=== PATIENT | male | born 1995 | race Caucasian/White ===

== ENCOUNTER → 2019-06-18 16:30 | Outpatient (BNVA) | payer OTHER, SELFPAY | PROVIDERS: Family Provider Family Medicine; Visit Provider Nurse Practitioner | DX: B34.9 Viral infection, unspecified (principal); Z20.828 Contact with and (suspected) exposure to other viral communicable diseases | CPT/HCPCS: 87635 ==

== ENCOUNTER → 2021-02-01 11:14 | Outpatient (BNVA) | payer OTHER, SELFPAY | PROVIDERS: Family Provider Family Medicine; Visit Provider Nurse Practitioner Family | DX: Z20.822 Contact with and (suspected) exposure to COVID-19 (principal) | CPT/HCPCS: 87635 ==

== ENCOUNTER → 2022-01-17 16:17 | Outpatient (BNVA) | payer OTHER, SELFPAY | PROVIDERS: Family Provider Family Medicine; PCP Family Medicine; Visit Provider Registered Nurse Neonatal Intensive Care | DX: J02.9 Acute pharyngitis, unspecified (principal) | CPT/HCPCS: 87070; 87071; 87880 ==

== ENCOUNTER 2023-09-30 21:09 | Emergency (ER) | payer OTHER, SELFPAY ==
[2023-09-30] VITALS (10 sets, daily range): BP systolic 164–204; BP diastolic 85–106; PULSE 70–98; RESP 16–19; TEMP 36.5; O2SAT 67–99; BMI 34.7
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
[2023-09-30] MEDS: ondansetron 2 mg/ML SDV 2 mL 4 MG IVP (21:46)
[2023-09-30] MEDS: morphine 4 mg/mL SDV 1 mL IVP ×2 (21:46→23:27)
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
[2023-09-30 22:36] LABS: Basophils # 0.1 10^3/uL (0.0-0.1); Basophils % 0.2 %; Eosinophils # 0.2 10^3/uL (0.0-0.8); Eosinophils % 0.9 %; Hematocrit 46.4 % (37-53); Lymphocytes # 2.2 10^3/uL (0.8-4.8); Lymphocytes % 9.5 %; Mean Corpuscular HGB Conc 34.5 g/dL (30-55); Mean Corpuscular Hemoglobin 30.5 pg (27-33); Mean Corpuscular Volume 88.5 fl (82-101); Mean Platelet Volume 9.4 fL (7.4-10.4); Monocytes % 4.3 %; Neutrophils # 18.87 10^3/uL (1.8-7.7); Neutrophils % 83.9 %; Nucleated Red Blood Cells % 0 %; Platelet Count 396 10^3/cmm (157-399); Red Blood Count 5.24 10^6/uL (3.85-5.65); Red Cell Distribution Width 12.7 % (12.1-15.1); White Blood Count 22.53 10^3/uL (3.29-11.43)
[2023-09-30 22:55] LABS: Alanine Aminotransferase 55 U/L (0-41); Albumin Level 4.5 g/dL (3.5-5.2); Alkaline Phosphatase 85 U/L (40-130); Anion Gap 14.9 (5-19); Aspartate Amino Transferase 61 U/L (0-40); Blood Urea Nitrogen 17 mg/dL (6-20); Calcium 9.1 mg/dL (8.5-10.5); Carbon Dioxide 25 mmol/L (22-29); Chloride 103 mmol/L (98-107); Creatinine Clr Calc Pharmacy 132.3118; Globulin 3.2 g/dL (1.3-4.6); Glucose 179 mg/dL (65-115); Osmolality Calculated 294 mOsm/kg (285-295); Potassium 3.9 mmol/L (3.5-5.1); Sodium 139 mmol/L (136-145); Total Bilirubin 0.4 mg/dL (0.15-1.2); Total Protein 7.7 g/dL (6.6-8.7)
[2023-09-30 23:00] LABS: Creatine Phosphokinase 790 U/L (39-308)
[2023-09-30 23:23] LABS: Add Urine Microscopic? YES; Amorphous Sediment Urine TRACE /hpf; Bacteria Urine 1+ /hpf; Bilirubin Urine Neg (Negative); Blood Urine 2+ (Negative); Glucose Urine UA Norm (Normal); Ketones Urine 1+ (Negative); Leukocyte Esterase Urine Negative (Negative); Mucus Urine TRACE /hpf; Nitrate Urine Negative (Negative); Protein Urine 1+ (Negative); RBC Urine 0-4 /hpf (0-2); Specific Gravity, Urine 1.025 (1.005-1.030); Squamous Epithelial Cell Urine 0-4 /hpf (0-5); Urine Appearance Cloudy (CLEAR); Urine Color Dark Yellow (Yellow); Urobilinogen Urine Neg (Negative); WBC Urine 0-4 /hpf (0-5); pH Urine 5 (5-7)
[2023-09-30] MEDS: ceFAZolin 2,000 MG in sodium chloride 0.9% (100 ml) 100 ML 200 MG IV (23:27)
[2023-09-30] MEDS: sodium chloride 0.9% 1,000 ML 999 ML IV (23:28)
[2023-10-01] MEDS: lidocaine 2% Urojet 20 mL 40 ML TOPICAL (00:15)
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
[2023-10-01 01:15] VITALS: BP 146/87; PULSE 99; RESP 18; O2SAT 99
[2023-10-01] MEDS: HYDROcodone-acetaminophen 7.5-325 mg Tablet 2 TAB PO (01:20)
== END 2023-10-01 01:26 | disposition home or self-care (01) ==
PROVIDERS: Emergency Provider Physician Assistant; PCP Family Medicine
DX: S40.811A Abrasion of right upper arm, initial encounter (principal); S40.212A Abrasion of left shoulder, initial encounter; S20.212A Contusion of left front wall of thorax, initial encounter; S80.211A Abrasion, right knee, initial encounter; S80.212A Abrasion, left knee, initial encounter; F17.210 Nicotine dependence, cigarettes, uncomplicated; V20.49XA Other motorcycle driver injured in collision with pedestrian or animal in traffic accident, initial encounter
CPT/HCPCS: 36415; 70450; 71250; 72125; 73030; 73080; 74176; 80053; 81001; 82550; 85025; 96365; 96375; 96376; 99285; J0690; J2270; J2405; J7030

== ENCOUNTER → 2023-10-10 15:13 | Outpatient (BNVA) | payer OTHER, SELFPAY | PROVIDERS: PCP Family Medicine; Visit Provider Clinical Nurse Specialist Adult Health | DX: M75.42 Impingement syndrome of left shoulder (principal); D72.829 Elevated white blood cell count, unspecified; R74.8 Abnormal levels of other serum enzymes | CPT/HCPCS: 85025 ==

== ENCOUNTER 2023-10-30 07:05 | Outpatient (CLI) | payer OTHER, SELFPAY ==
--- NOTE | 2023-10-30 07:15 | MR_ITS ---
WS: [id number] MRI LEFT SHOULDER HISTORY: left shoulder pain and decreased ROM COMPARISON: Radiograph 09/30/2023 TECHNIQUE: Multiplanar sequences of the shoulder joint are submitted. Mild AC joint arthritis. No fluid within the AC joint. No significant subacromial impingement. No sub acromial or subdeltoid bursal fluid. No os acromion. Biceps tendon in normal position at the bicipita l groove. Humeral head is normally seated at the glenoid. No fractures or marrow edema. No muscle atrophy. Ther e is a moderate amount of edema in the subscapularis and infraspinatus muscles. This edema is closely associated with the scapular body. There is no mass or subscapular nerve entrapment identified. The muscle tendons appear intact. No tendon tear. No labral tear. No joint effusion. MR/MR shoulder LT wo con* [id number] IMPRESSION: 1. No rotator cuff tear. 2. There is a moderate amount of edema within the subscapularis and infraspina tus muscles closely associated with the scapular body. This is not a typical pa ttern for a brachial neuritis. This could be associated with muscle sprain or t rauma to this region if that correlates with the history. Autoimmune disease sh ould be considered. 3. There is a small amount of increased T2 signal within the scapula also whic h may represent edema or recent trauma. 4. No AC joint abnormality.
== END 2023-10-30 07:06 | disposition home or self-care (01) ==
PROVIDERS: PCP Family Medicine; Visit Provider Clinical Nurse Specialist Adult Health
DX: M75.42 Impingement syndrome of left shoulder (principal); M25.412 Effusion, left shoulder
CPT/HCPCS: 73221

== ENCOUNTER → 2023-11-07 15:42 | Outpatient (BNVA) | payer OTHER, SELFPAY | PROVIDERS: PCP Family Medicine; Visit Provider Family Medicine | DX: R73.09 Other abnormal glucose (principal) | CPT/HCPCS: 80053; 80061; 83036 ==